=== PATIENT | female | born 1990 | race Caucasian/White ===

== ENCOUNTER 2017-05-23 11:47 | Outpatient (CLI) | payer OTHER | END 2017-05-23 14:10 | disposition home or self-care (01) | LOC: OBT 11:47 → L-D 11:47 → OBT 14:10 | DX: O42.92 Full-term premature rupture of membranes, unspecified as to length of time between rupture and onset of labor (principal); Z3A.39 39 weeks gestation of pregnancy | CPT/HCPCS: 76815; 76818 ==

== ENCOUNTER 2017-05-26 20:18 | Inpatient (IN) | payer OTHER ==
[2017-05-26] MEDS ORDERED: LIDOCAINE 1% (MPF) 30 ML INJ INJ (20:30)
[2017-05-26] MEDS ORDERED: BUTORPHANOL 2 MG INJ IV (20:30)
[2017-05-26] MEDS ORDERED: OXYTOCIN 30 UNITS/LR 500 ML IV (20:30)
[2017-05-26] MEDS ORDERED: CARBOPROST 250 MCG INJ IM (20:30)
[2017-05-26] MEDS ORDERED: MISOPROSTOL 200 MCG TAB PR (20:30)
[2017-05-26] MEDS ORDERED: METHYLERGONOVINE 0.2 MG INJ IM (20:30)
[2017-05-26] MEDS ORDERED: IBUPROFEN 600 MG TAB PO (20:30)
[2017-05-26 20:52] LABS: ADD MAN DIFF? NO
[2017-05-26 20:54] LABS: BASOPHILS % 0.3 % (0.0-2.0); EOSINOPHILS # 0.1 10^3/ul (0.0-0.5); EOSINOPHILS % 0.6 % (0.0-7.0); HEMOGLOBIN 10.4 g/dl (12.0-16.0); LYMPHOCYTES # 2.3 10^3/ul (0.8-2.9); LYMPHOCYTES % 28.9 % (15.0-51.0); MEAN CORPUSCULAR HEMOGLOBIN 25.7 pg (29.0-33.0); MEAN CORPUSCULAR HGB CONC 31.5 g/dl (32.0-37.0); MEAN CORPUSCULAR VOLUME 81.7 fl (82.0-101.0); MEAN PLATELET VOLUME 9.9 fl (7.4-10.4); MONOCYTE # 0.5 10^3/ul (0.3-0.9); MONOCYTES % 6.8 % (0.0-11.0); NEUTROPHILS % 62.9 % (39.0-77.0); PLATELET COUNT 225 10^3/UL (140-415); RED BLOOD COUNT 4.04 10^6/ul (4.20-5.40); RED CELL DISTRIBUTION WIDTH 13.2 % (11.5-14.5)
[2017-05-26] MEDS: LACTATED RINGER'S 1,000 ML IV ×2 (20:56→22:00)
[2017-05-26] MEDS ORDERED: FENTAnyl 2MCG/ML-ROPIV 0.2% 100 ML BAG EPI (21:00)
[2017-05-26] MEDS ORDERED: DIPHENHYDRAMINE 50 MG INJ IV (21:00)
[2017-05-26] MEDS ORDERED: ONDANSETRON 4 MG INJ IV (21:00)
[2017-05-26] MEDS ORDERED: NALOXONE (0.4 MG/ML) INJ IV (21:00)
[2017-05-26 21:09] LABS: INR 0.91; PROTIME 12.3 Sec (11.9-14.9)
[2017-05-26 21:10] LABS: PARTIAL THROMBOPLASTIN TIME 25.8 Sec (25.0-35.0)
[2017-05-26] MEDS: AMPICILLIN 2 GM/NS (PMX) 100 ML IVPB (21:30)
[2017-05-26 21:42] LABS: HEPATITIS B SURFACE ANTIGEN NEGATIVE (NEGATIVE)
[2017-05-27] MEDS: AMPICILLIN 1 GM/NS (PMX) 50 ML IVPB (01:30)
[2017-05-27] MEDS: OXYTOCIN 30 UNITS/LR 500 ML IV ×3 (02:11→06:33)
[2017-05-27] MEDS: LACTATED RINGER'S 1,000 ML IV* ×3 (02:31→17:23)
[2017-05-27] MEDS ORDERED: CARBOPROST 250 MCG INJ IM (03:00)
[2017-05-27] MEDS ORDERED: METHYLERGONOVINE 0.2 MG INJ IM (03:00)
[2017-05-27] MEDS ORDERED: DIBUCAINE 1% 30 GM OINT PR (03:00)
[2017-05-27] MEDS ORDERED: MISOPROSTOL 200 MCG TAB PR (03:00)
[2017-05-27] MEDS ORDERED: OXYTOCIN 30 UNITS/LR 500 ML IV (03:00)
[2017-05-27] MEDS ORDERED: HYDROCODONE/APAP (5/325) TAB PO (03:00)
[2017-05-27] MEDS: LANOLIN 7 GM TUBE TOP (05:28)
[2017-05-27] MEDS: WITCH HAZEL/GLYCERIN PAD PR (05:28)
[2017-05-27] MEDS: IBUPROFEN 600 MG TAB PO ×3 (06:31→17:31)
[2017-05-27] MEDS: SENNA TAB PO (21:45)
[2017-05-27] MEDS: HYDROCODONE/APAP (5/325) TAB PO (22:36)
[2017-05-27 23:25] LABS: RAPID PLASMA REAGIN NONREACTIVE (NR)
[2017-05-28] MEDS: LACTATED RINGER'S 1,000 ML IV* (02:31)
[2017-05-28] MEDS: IBUPROFEN 600 MG TAB PO ×3 (06:08→12:11)
[2017-05-28] MEDS: SENNA TAB PO (08:37)
[2017-05-28 09:27] LABS: ADD MAN DIFF? NO
[2017-05-28 09:31] LABS: WHITE BLOOD COUNT 4.8 10^3/ul (4.8-10.8)
[2017-05-28 09:31] LABS: BASOPHILS % 0.4 % (0.0-2.0); EOSINOPHILS % 0.6 % (0.0-7.0); HEMATOCRIT 29.5 % (37.0-47.0); HEMOGLOBIN 9.2 g/dl (12.0-16.0); LYMPHOCYTES # 0.9 10^3/ul (0.8-2.9); MEAN CORPUSCULAR HEMOGLOBIN 26.3 pg (29.0-33.0); MEAN CORPUSCULAR HGB CONC 31.2 g/dl (32.0-37.0); MEAN CORPUSCULAR VOLUME 84.3 fl (82.0-101.0); MEAN PLATELET VOLUME 10.1 fl (7.4-10.4); MONOCYTE # 0.4 10^3/ul (0.3-0.9); MONOCYTES % 7.2 % (0.0-11.0); NEUTROPHIL # 3.5 10^3/ul (1.6-7.5); NEUTROPHILS % 72.2 % (39.0-77.0); PLATELET COUNT 171 10^3/UL (140-415); RED CELL DISTRIBUTION WIDTH 13.5 % (11.5-14.5)
[2017-05-28] MEDS: BENZOCAINE 20% 56 ML SPRAY TOP (13:54)
[2017-05-28] MEDS: LANOLIN 7 GM TUBE TOP (13:54)
[2017-05-28] MEDS: WITCH HAZEL/GLYCERIN PAD PR (13:54)
[2017-05-29] MEDS ORDERED: DIPHTH/TET/ACEL PERTUSS (ADULT) 0.5 ML VIAL IM* (09:00)
[2017-05-29] MEDS ORDERED: VARICELLA VACCINE LIVE/PF 1,350 UNIT/0.5 ML ML SC* (09:00)
[2017-05-29] MEDS ORDERED: MEASLES,MUMPS,RUBELLA VACCINE INJ SC* (09:00)
== END 2017-05-28 14:55 | disposition home or self-care (01) | DRG 775 ==
LOC: PP1 05-27 16:23 → L-D 20:18
PROVIDERS: Obstetrics & Gynecology
PROC: 10E0XZZ Delivery of Products of Conception, External Approach (ICD-10-PCS; principal; 2017-05-26)
PROC: 0KQM0ZZ Repair Perineum Muscle, Open Approach (ICD-10-PCS; 2017-05-26)
PROC: 3E033VJ Introduction of Other Hormone into Peripheral Vein, Percutaneous Approach (ICD-10-PCS; 2017-05-26)
DX: O70.1 Second degree perineal laceration during delivery (principal); Z37.0 Single live birth; O69.81X0 Labor and delivery complicated by cord around neck, without compression, not applicable or unspecified; Z3A.39 39 weeks gestation of pregnancy
CPT/HCPCS: 62319; 85025; 85610; 85730; 86592; 86850; 86900; 86901; 87340